=== PATIENT | male | born 1980 | race Caucasian/White ===

== ENCOUNTER 2018-02-05 10:01 | Emergency (ER) | payer SELFPAY ==
[~2018-02-05] VITALS: Ht 172.7 cm; Wt 63.5 kg
[2018-02-05 10:02] VITALS: BP 133/97
[2018-02-05] MEDS ORDERED: cefTRIAXone 1,000 MG VIAL ONE (11:15)
[2018-02-05] MEDS: cefTRIAXone 1,000 MG in LIDOCAINE 1% ***ER ONLY *** 2.1 ML IM ONE (11:27)
[2018-02-05] MEDS: IBUPROFEN 600 MG TAB PO ONE (11:30)
[2018-02-05] MEDS: HYDROcodone/APAP 5/325 MG 1 TAB TAB PO ONE (11:30)
[2018-02-05] MEDS: LIDOCAINE 1% 500 MG/50 ML VIAL INJ ONE (14:54)
[2018-02-05] MEDS: NEOMYCIN/POLYMYXIN/BACITRACIN 0.9 GM/1 PKT TP ONE ×2 (14:55)
[2018-02-05 16:00] VITALS: BP 114/81
== END 2018-02-05 16:00 | disposition home or self-care (01) ==
LOC: MED 10:01
DX: S51.812A Laceration without foreign body of left forearm, initial encounter (principal); S01.312A Laceration without foreign body of left ear, initial encounter; Y08.89XA Assault by other specified means, initial encounter; Y93.89 Activity, other specified; Y92.89 Other specified places as the place of occurrence of the external cause; Y99.8 Other external cause status
CPT/HCPCS: 12002; 12013; 90471; 90715; 96372; 99284; J0696; J2001